=== PATIENT | male | born 1950 | race Caucasian/White ===

== ENCOUNTER 2017-02-04 14:34 | Inpatient (IN) | payer OTHER ==
[~2017-02-04] VITALS: Ht 177.8 cm; Wt 48.1 kg
[2017-02-04 15:08] LABS: BASOPHIL % 0.2 % (0-2); PLATELET COUNT 130 x10^3mcL (130-400); RED CELL DISTRIBUTION WIDTH 13.1 % (11.5-14.5)
[2017-02-04] MEDS ORDERED: SPIRIVA18 MC1 INH (15:17)
[2017-02-04] MEDS ORDERED: ATRNS6 (15:17)
[2017-02-04] MEDS ORDERED: ALBUTEROL SULFAT3 ML NEB (15:17)
[2017-02-04 15:20] LABS: CALCIUM 9.1 mg/dL (8.5-10.1); CARBON DIOXIDE 38.4 mmol/L (21-32); CHLORIDE SERUM 103 mmol/L (98-107); CREATININE SERUM 0.8 mg/dL (0.7-1.3); GFR1 > 60 mL/min; GLUCOSE SERUM 157 mg/dL (74-106); POTASSIUM SERUM 4.3 mmol/L (3.5-5.1); SODIUM SERUM 144 mmol/L (136-145)
[2017-02-04 15:25] LABS: ALBUMIN 3.2 g/dL (3.4-5.0); ALKALINE PHOSPHATASE 62 U/L (46-116); ALT/SGPT 14 U/L (16-63); AST/SGOT 14 U/L (15-37); BILIRUBIN TOTAL 0.3 mg/dL (0.20-1.00); CHOLESTEROL 127 mg/dL (<200); HDL CHOLESTEROL 36 mg/dL (40-60); PHOSPHOROUS 4.3 mg/dL (2.5-4.9); TOTAL PROTEIN, SERUM 7.9 g/dL (6.4-8.2); URIC ACID 4.7 mg/dL (3.5-7.2)
[2017-02-04 17:07] LABS: MAGNESIUM 2.1 mg/dL (1.8-2.4)
[2017-02-04 17:20] LABS: FREE T4 1.17 ng/dL (0.76-1.46); FREE THYROXINE INDEX 2.8 ug/dL (1.4-4.5); T4(THYROXINE) 8.2 ug/dL (4.7-13.3)
[2017-02-04 17:21] LABS: T3 TOTAL 1.03 ng/mL
[2017-02-04 17:32] VITALS: BP 112/70; BP 128/73
[2017-02-04 21:44] VITALS: BP 107/57
[2017-02-05 06:07] VITALS: BP 110/68
[2017-02-05 06:41] LABS: CALCIUM 8.6 mg/dL (8.5-10.1); CARBON DIOXIDE 35.6 mmol/L (21-32); CHLORIDE SERUM 107 mmol/L (98-107); CREATININE SERUM 0.7 mg/dL (0.7-1.3); GFR1 > 60 mL/min; GLUCOSE SERUM 177 mg/dL (74-106); POTASSIUM SERUM 4.6 mmol/L (3.5-5.1); SODIUM SERUM 147 mmol/L (136-145)
[2017-02-05 09:35] VITALS: BP 91/48
[2017-02-05 12:05] VITALS: BP 113/61
[2017-02-05 14:07] VITALS: BP 113/61
[2017-02-05 17:17] VITALS: BP 119/56
[2017-02-05 21:26] VITALS: BP 103/60
[2017-02-06 05:54] VITALS: BP 115/52
[2017-02-06 06:28] LABS: CALCIUM 8.2 mg/dL (8.5-10.1); CARBON DIOXIDE 33.6 mmol/L (21-32); CHLORIDE SERUM 107 mmol/L (98-107); CREATININE SERUM 0.7 mg/dL (0.7-1.3); GFR1 > 60 mL/min; GLUCOSE SERUM 166 mg/dL (74-106); POTASSIUM SERUM 4.9 mmol/L (3.5-5.1); SODIUM SERUM 144 mmol/L (136-145)
[2017-02-06 06:31] LABS: microscopic required? NO
[2017-02-06 07:57] LABS: urine erythrocyte NEGATIVE (NEGATIVE)
[2017-02-06 10:05] VITALS: BP 141/60
[2017-02-06 14:31] VITALS: BP 105/57
[2017-02-06 15:11] VITALS: BP 129/69
[2017-02-06 17:31] VITALS: BP 115/73
[2017-02-06 21:44] VITALS: BP 122/62
[2017-02-07 06:05] VITALS: BP 107/63
[2017-02-07 06:36] LABS: CALCIUM 8.5 mg/dL (8.5-10.1); CARBON DIOXIDE 34.8 mmol/L (21-32); CHLORIDE SERUM 101 mmol/L (98-107); CREATININE SERUM 0.6 mg/dL (0.7-1.3); GFR1 > 60 mL/min; GLUCOSE SERUM 127 mg/dL (74-106); POTASSIUM SERUM 4.5 mmol/L (3.5-5.1); SODIUM SERUM 141 mmol/L (136-145)
[2017-02-07 09:20] VITALS: BP 135/64
[2017-02-07 12:20] VITALS: BP 127/63
[2017-02-07 17:01] VITALS: BP 127/63
[2017-02-07] MEDS ORDERED: LAC PO (17:11)
[2017-02-07] MEDS ORDERED: LEVAQUIN500 M1 PO (17:11)
[2017-02-07] MEDS ORDERED: MEDDP PO (17:16)
[2017-02-07 17:46] VITALS: BP 123/74
== END 2017-02-07 18:36 | disposition hospice, home (50) | DRG 190 ==
LOC: ED 14:34 → DU 16:39
PROVIDERS: Emergency Medicine; Family Medicine; ADMIT Family Medicine
DX: J44.1 Chronic obstructive pulmonary disease with (acute) exacerbation (principal); J96.21 Acute and chronic respiratory failure with hypoxia; N17.0 Acute kidney failure with tubular necrosis; E44.0 Moderate protein-calorie malnutrition; F79 Unspecified intellectual disabilities; F17.210 Nicotine dependence, cigarettes, uncomplicated; Z99.81 Dependence on supplemental oxygen
CPT/HCPCS: 36600; 83880; 84439; 97110-GP; J1644; J2543; J2920; J2930; J7030; J7050; J7613; J7620; J7626; J7644; Q0092